=== PATIENT | female | born 1970 | race Caucasian/White ===

== ENCOUNTER 2020-02-03 01:02 | Inpatient (IN) | payer MEDICARE, OTHER ==
[~2020-02-03] VITALS: Ht 157.5 cm; Wt 77.3 kg
[2020-02-03] MEDS ORDERED: CELE10TA PO ×2 (01:42→02:16)
[2020-02-03] MEDS ORDERED: SERO50TA PO (01:42)
[2020-02-03] MEDS ORDERED: SERO200T PO (01:42)
[2020-02-03] MEDS ORDERED: PROTPAK PO (01:42)
[2020-02-03] MEDS ORDERED: PANT40TA3 PO (02:18)
[2020-02-03] MEDS ORDERED: DILA2TAB6 PO (02:18)
[2020-02-03] MEDS ORDERED: QUET200T2 PO (02:18)
[2020-02-03] MEDS ORDERED: QUET5TAB PO (02:18)
[2020-02-03] MEDS ORDERED: MOM 30ML SUSPENSION UDC PO PRN (04:00)
[2020-02-03] MEDS ORDERED: ACETAMINOPHEN TAB 650MG DOSE (2X325MG) PO PRN (04:00)
[2020-02-03] MEDS ORDERED: MAALOX 30 ML SUSP *UDC PO PRN (04:00)
[2020-02-03] MEDS ORDERED: PANTOPRAZOLE 40MG TAB (PROTONIX) PO SCH (09:00)
[2020-02-03] MEDS: QUEtiapine FUMARATE 50 MG TAB PO SCH (09:35)
--- NOTE | 2020-02-03 09:54 | MHHPEPDOC ---
[facility] History & Physical History and Physical DATE OF ADMISSION: Feb 03, 2020 at 04:04 loida presents today for concerns regarding anxiety and depression. She admits to attempting to slit her wrist yesterday morning. She states that she is depressed about her life and possesses feelings of hopelessness. She reports that she has been battling these feelings of depression for years now. She enjoys having people around her. She reports hearing voices in her head for about a week now, and they tell her to end her life and get it over with. She denies any haunting feelings about losing her legs and avoiding certain things. She admits that life without her legs is difficult because she is unable to do many things like drive. Sherice denies having any thoughts about doing things that she would not otherwise do. She does admit to making herself vomit in the past. MEDICATIONS: She has previously been on Seroquel and Celexa, and reports taking Paxil many years ago which worked for a brief period of time. She denies ever taking Wellbutrin. MEDICAL HISTORY: She has been to a mental health unit twice before, but cannot recall when. They sent her to the [facility] to treat her trauma she had from losing her legs. She attempted suicide in 2014. She reports having phantom limb pain in her legs, and has been treated with Hydromorphone. She has arthritis on her lower back and left side. FAMILY HISTORY: She denies any family history of depression or mental health problems. SOCHX: on disability, few supports Objective Appearance: Well nourished. Well groomed. Behavior: Cooperative with good eye contact. Pleasant. Engaged. Affect: Full range. Appropriate to context. Mood: Dysthumic, crying, tearful. Generally good. Appropriately reactive. Speech: Normal volume. Normal rate. Insight: good insight into symptoms and treatment options. 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 Start Wellbutrin ER 150 mg daily. The risks, benefits as well as common side effects as well as alternative jonah tments (including non-treatment) were discussed with the patient both in general and for their particular case. The patient selected this option out of a range. Patients treatment priorities are 1. Risk for suicide and 2. Depression. Her estimated length of stay is anywhere between 3-5 days. Vital Signs Vital Signs Date Time Temp Pulse Resp B/P (MAP) Pulse Ox O2 Delivery O2 Flow Rate FiO2 02/03/20 09:37 97.2 76 16 133/84 (100) 98 02/03/20 05:27 Room Air Medications Scheduled Citalopram Hydrobromide (Celexa) 10 Mg Tablet, 10 MG PO QHS, (Reported) Hydromorphone HCl (Dilaudid) 2 Mg Tablet, 2 MG PO QHS, (Reported) Pantoprazole Sodium (Pantoprazole Sodium) 40 Mg Tablet.dr, 40 MG PO BID, (Reported) Quetiapine Fumarate (Quetiapine Fumarate) 50 Mg Tablet, 50 MG PO DAILY, (Reported) Quetiapine Fumarate (Quetiapine Fumarate) 200 Mg Tablet, 200 MG PO QHS, (Reported) Allergies Coded Allergies: Penicillins (Verified Allergy, Severe, 02/03/20) iodine (Verified Allergy, Severe, 02/03/20) SAI GR DO Feb 03, 2020 09:53
[2020-02-03 10:00] VITALS: BP 140/83
[2020-02-03] MEDS ORDERED: buPROPion **XL** TABLET 150MG (WELLBUTRIN XL) PO ONE (11:45)
[2020-02-03] MEDS: NICOTINE 21MG/24HR 1 EA TRANSDERMAL TD SCH (12:16)
[2020-02-03 16:10] VITALS: BP 140/76
--- NOTE | 2020-02-03 16:31 | HPEPDOC ---
General Date of Admission Feb 03, 2020 at 04:04 Date of Service: Feb 03, 2020 Chief Complaint The patient is a 49-year-old female who presented to the hospital with suicidal attempt History of Present Illness Patient is a 49-year-old female with a PMHx GERD, Arthritis, Phantom limb pain who presented to [facility] after she had a suicidal attempt in which she cut her left wrist. Patient was evaluated by emergency room provider at outside ER and then transferred to [facility] for psychiatric services. Patient was admitted to the inpatient mental health unit under the care of psychiatry for suicidal attempt. Currently patient denies any nausea, vomiting, chest pain, shortness breath, palpitations, cough, pain consultation, diarrhea, or urinary discomfort. Patient denies any changes in her weight or appetite. Home Medications Scheduled Citalopram Hydrobromide (Celexa) 10 Mg Tablet, 10 MG PO QHS, (Reported) Hydromorphone HCl (Dilaudid) 2 Mg Tablet, 2 MG PO QHS, (Reported) Pantoprazole Sodium (Pantoprazole Sodium) 40 Mg Tablet.dr, 40 MG PO BID, (Reported) Quetiapine Fumarate (Quetiapine Fumarate) 50 Mg Tablet, 50 MG PO DAILY, (Reported) Quetiapine Fumarate (Quetiapine Fumarate) 200 Mg Tablet, 200 MG PO QHS, (Reported) Allergies Coded Allergies: Penicillins (Verified Allergy, Severe, 02/03/20) iodine (Verified Allergy, Severe, 02/03/20) Past Medical History Medical History GERD, Arthritis, Phantom limb pain Surgical History Hysterectomy with right-sided oophorectomy Cholecystectomy Left-sided oophorectomy Family History - Mother with a history of breast cancer and father with a history of prostate cancer Social History - Denies the use of alcohol or illicit drugs; patient is a smoker of 20 years - Denies recent travel or sick contacts - Lives alone - Occupation; disability Review of Systems Other systems 10 point review of systems complete, all negative otherwise stated in HPI Vital Signs - Vitals: BP 140/76, HR 75, RR 16, Sat 98%RA, Temp 98.5F - General: Sitting up in wheelchair, Speaking in full sentences, AAOx3 - HEENT: NC, AT, PERRLA - CVS: RRR, +S1S2 - Lungs: Fair air entry bilaterally, No appreciable wheezing / rales / rhonchi - Abdomen: Soft, Non-distended, Non-tender - Extremities: L BKA, R AKA - Neuro: No focal motor or sensory deficit - Skin: Left wrist with [address]; appears clean without any drainage / erythema / swelling Plan / VTE VTE Prophylaxis Ordered?: Yes Plan Plan Suicidal attempt - Currently being managed by psychiatry Left wrist laceration - Wound appears clean without any evidence of infection or drainage - Will start bacitracin ointment and continue with daily / BID dressing changes - Will have wound care evaluate Arthritis - c/w Tylenol PRN Phantom limb pain - Patient has been prescribed Dilaudid as an outpatient and has already been discontinued at this time Smoker / Nicotine dependence - c/w Nicotine path GERD - c/w Protonix DVT prophylaxis - Will c/w early mobility Female ux developer was present throughout the duration of this history and physical examination Thank you for this consultation; please reconsult as needed - will sign off FRANCK SHAH MD Feb 03, 2020 16:31
[2020-02-03] MEDS: PANTOPRAZOLE 40MG TAB (PROTONIX) PO SCH (17:44)
[2020-02-03] MEDS: traZODone 50 MG TAB PO PRN (20:28)
[2020-02-03] MEDS: HYDROmorphone 2 MG TAB PO SCH (20:29)
[2020-02-03] MEDS: BACITRACIN OINTMENT 30GM TUBE TOP SCH (20:32)
[2020-02-03] MEDS ORDERED: CitaloPRAM (CeleXA) 10 MG TABLET PO SCH (21:00)
[2020-02-03] MEDS ORDERED: QUEtiapine FUMARATE 200 MG TAB PO SCH (21:00)
[2020-02-04 07:16] VITALS: BP 136/94
[2020-02-04] MEDS: PANTOPRAZOLE 40MG TAB (PROTONIX) PO SCH ×2 (07:28→16:54)
[2020-02-04] MEDS: NICOTINE 21MG/24HR 1 EA TRANSDERMAL TD SCH (08:37)
[2020-02-04] MEDS: buPROPion **XL** TABLET 150MG (WELLBUTRIN XL) PO SCH (08:37)
[2020-02-04] MEDS: QUEtiapine FUMARATE 50 MG TAB PO SCH (08:37)
[2020-02-04] MEDS: BACITRACIN OINTMENT 30GM TUBE TOP SCH ×2 (09:54→21:23)
--- NOTE | 2020-02-04 15:07 | MHIPNPDOC ---
[facility] Progress Note Progress Note DATE OF SERVICE: 02/04/20 HISTORY: She tried to commit suicide, she tried to cut her wrists because she was feeling very depressed. She says she has tried to kill herself before and it hapenned when she was feeling down and depressed. She says she feels that she is feeling better today, she has prosthetic legs, she has a support system and she would like to go home As per pevious records: "Pt was transferred from [facility] due to SI. She was medically cleared at [facility]. Chief Complaint Pt states that she cut her arm with an electric saw as a suicide attempt. The cut required nine stitches. Pt is tearful & states that she does not know whether or not she is still suicidal. Pt denies HI. Pt had a suicide attempt in 2014, at which time she jumped in front of a tractor trailer & lost both of her legs as a result. Pt denies any hx of self-harm. She denies VH, but reports AH that tell her to kill herself. Main triggers are financial px's & the termination of a romantic relationship in November 2019. Pt c/o depressed mood, anxiety, hopelessness & helplessness, poor concentration, decreased energy levels, & poor sleep. Pt has a hx of depression & anxiety with at least two admissions to [facility]. She does not currently have OP tx. Her PCP prescribes Seroquel & Celexa. Pt denies any substance use & her tox screen was negative. VITAL SIGNS: See below. NEW TEST RESULTS: See below CURRENT MEDICATIONS: See below. MENTAL STATUS EXAMINATION: Patient is a 49 year old female, who is alert, cooperative, dressed in hospital clothes, sitting on a wheel chair ( her legs have been amputated). Speech: Is Spontaneous and fluent, normal rate, tone and volume Language skills are good. Thought processes including: linear but not necessarily coherent. Thought content: She says that she would like to be home when I ask her what would she like to do. She says she would like to work with her prosthetics. Abstract reasoning, and computation: Description of associations: . Description of abnormal or psychotic thoughts: She denies AH, denies VH, denies tactile hallucinations. She denies thought insertion, denies paranoid delusions Judgment: Poor Insight: Poor Orientation: x 3 Recent and remote memory: fair Attention span and concentration: go Fund of knowledge: average Mood: Depressed Affect: constricted, sad, anxious. 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 She sys she has never planned it. MANAGEMENT PLAN: She is very impulsive, she will benefit from Depakote to help her with impulse control. TIME SPENT: 20 minutes. Vital Signs Vital Signs Date Time Temp Pulse Resp B/P (MAP) Pulse Ox O2 Delivery O2 Flow Rate FiO2 02/04/20 07:16 97.9 74 18 136/94 (108) 97 Room Air Current Medications Current Medications Medications (Trade) Dose Ordered Sig/Nito Route PRN Reason Start Time Stop Time Status Last Admin Dose Admin Acetaminophen (Tylenol Tab) 650 mg Q6HP PRN PO HEADACHE or DISCOMFORT 02/03/20 04:00 Al Hydrox/Mg Hydrox/Simethicone (Mylanta) 30 ml Q4HP PRN PO HEARTBURN/INDIGESTION 02/03/20 04:00 Bacitracin (Bacitracin Oint) TO: L wrist BID TOP 02/03/20 21:00 02/04/20 09:54 Bupropion HCl (Wellbutrin Xl) 150 mg DAILY PO 02/04/20 09:00 02/04/20 08:37 Citalopram Hydrobromide (CeleXA) 10 mg QHS PO 02/03/20 21:00 02/03/20 11:33 DC Home Med (Med Rec Complete!) ASDIRECTED XX 02/03/20 02:30 02/03/20 02:23 DC Hydromorphone HCl (Dilaudid) 2 mg QHS PO 02/03/20 21:00 02/03/20 20:29 Magnesium Hydroxide (Milk Of Magnesia) 30 ml DAILYPRN PRN PO CONSTIPATION 02/03/20 04:00 Nicotine (Nicoderm Cq 21mg) 1 patch DAILY TD 02/03/20 09:00 02/04/20 08:37 Pantoprazole Sodium (Protonix) 40 mg BID PO 02/03/20 09:00 02/03/20 17:38 DC 02/03/20 09:35 Pantoprazole Sodium (Protonix) 40 mg BID@0800,1700 PO 02/03/20 17:00 02/04/20 07:28 Quetiapine Fumarate (SEROquel) 50 mg DAILY PO 02/03/20 09:00 02/04/20 08:37 Quetiapine Fumarate (SEROquel) 200 mg QHS PO 02/03/20 21:00 02/03/20 11:34 DC Trazodone HCl (Desyrel) 50 mg QHSP PRN PO INSOMNIA 02/03/20 04:00 02/03/20 20:28 Allergies Coded Allergies: Penicillins (Verified Allergy, Severe, 02/03/20) iodine (Verified Allergy, Severe, 02/03/20) MALOU AYALA MD Feb 04, 2020 15:05
[2020-02-04 16:40] VITALS: BP 126/86
[2020-02-04] MEDS: traZODone 50 MG TAB PO PRN (21:21)
[2020-02-04] MEDS: HYDROmorphone 2 MG TAB PO SCH (21:23)
[2020-02-05 06:12] VITALS: BP 142/90
[2020-02-05] MEDS: PANTOPRAZOLE 40MG TAB (PROTONIX) PO SCH ×2 (07:22→17:11)
[2020-02-05] MEDS: buPROPion **XL** TABLET 150MG (WELLBUTRIN XL) PO SCH (08:11)
[2020-02-05] MEDS: QUEtiapine FUMARATE 50 MG TAB PO SCH (08:11)
[2020-02-05] MEDS: NICOTINE 21MG/24HR 1 EA TRANSDERMAL TD SCH (08:11)
[2020-02-05] MEDS: BACITRACIN OINTMENT 30GM TUBE TOP SCH ×2 (09:16→20:34)
--- NOTE | 2020-02-05 11:13 | MHIPNPDOC ---
[facility] Progress Note Progress Note DATE OF SERVICE: 02/05/20 HPI: Sherice presents today for a follow-up visit. She reports she is doing good and her medication is making her feel better. Sherice denies having suicidal thoughts or hallucinations. She also denies having side effects such as stomachaches or vision changes. Objective Appearance: Well nourished. Well groomed. Behavior: Pleasant. Engaged. Cooperative with good eye contact. Affect: Full range. Appropriate to context. Mood: Appropriately reactive. Generally good. Euthymic. Speech: Normal rate. Normal volume. Motor: No gross motor abnormalities. Cognition: Alert, Attentive, and Oriented to person, place, time. Memory: No formal testing. No gross abnormalities of short or warehouse material handler memory noted during interview. Thought Form: Linear and goal directed. Thought Content: No evidence of suicidal ideation. No thoughts of self harm. No evidence of aggressive or homicidal ideation. No evidence of delusions. Perception: No perceptual abnormalities noted. Judgement: intact as evidenced by decision making in the recent past. Insight: good insight into symptoms and treatment options. Assessment F32.5 Major depressive disorder, single episode, in full remission Plan Continue Wellbutrin to allow full effect to help complete her treatment and ensure that she has the lowest risk of recurrence of her depression. Likely discharge on Friday if she remains improved. Vital Signs Vital Signs Date Time Temp Pulse Resp B/P (MAP) Pulse Ox O2 Delivery O2 Flow Rate FiO2 02/05/20 06:12 97.2 64 16 142/90 (107) 02/04/20 07:16 97 Room Air Current Medications Current Medications Medications (Trade) Dose Ordered Sig/Nito Route PRN Reason Start Time Stop Time Status Last Admin Dose Admin Acetaminophen (Tylenol Tab) 650 mg Q6HP PRN PO HEADACHE or DISCOMFORT 02/03/20 04:00 Al Hydrox/Mg Hydrox/Simethicone (Mylanta) 30 ml Q4HP PRN PO HEARTBURN/INDIGESTION 02/03/20 04:00 Bacitracin (Bacitracin Oint) TO: L wrist BID TOP 02/03/20 21:00 02/05/20 09:16 Bupropion HCl (Wellbutrin Xl) 150 mg DAILY PO 02/04/20 09:00 02/05/20 08:11 Citalopram Hydrobromide (CeleXA) 10 mg QHS PO 02/03/20 21:00 02/03/20 11:33 DC Home Med (Med Rec Complete!) ASDIRECTED XX 02/03/20 02:30 02/03/20 02:23 DC Hydromorphone HCl (Dilaudid) 2 mg QHS PO 02/03/20 21:00 02/04/20 21:23 Magnesium Hydroxide (Milk Of Magnesia) 30 ml DAILYPRN PRN PO CONSTIPATION 02/03/20 04:00 Nicotine (Nicoderm Cq 21mg) 1 patch DAILY TD 02/03/20 09:00 02/05/20 08:11 Pantoprazole Sodium (Protonix) 40 mg BID PO 02/03/20 09:00 02/03/20 17:38 DC 02/03/20 09:35 Pantoprazole Sodium (Protonix) 40 mg BID@0800,1700 PO 02/03/20 17:00 02/05/20 07:22 Quetiapine Fumarate (SEROquel) 50 mg DAILY PO 02/03/20 09:00 02/05/20 08:11 Quetiapine Fumarate (SEROquel) 200 mg QHS PO 02/03/20 21:00 02/03/20 11:34 DC Trazodone HCl (Desyrel) 50 mg QHSP PRN PO INSOMNIA 02/03/20 04:00 02/04/20 21:21 Allergies Coded Allergies: Penicillins (Verified Allergy, Severe, 02/03/20) iodine (Verified Allergy, Severe, 02/03/20) SAI GR DO Feb 05, 2020 11:13
[2020-02-05 16:30] VITALS: BP 136/82
[2020-02-05] MEDS: HYDROmorphone 2 MG TAB PO SCH (20:35)
[2020-02-05] MEDS: traZODone 50 MG TAB PO PRN (20:52)
[2020-02-06 06:29] VITALS: BP 144/76
[2020-02-06] MEDS: PANTOPRAZOLE 40MG TAB (PROTONIX) PO SCH ×2 (07:21→16:46)
[2020-02-06] MEDS: QUEtiapine FUMARATE 50 MG TAB PO SCH (08:18)
[2020-02-06] MEDS: buPROPion **XL** TABLET 150MG (WELLBUTRIN XL) PO SCH (08:18)
[2020-02-06] MEDS: NICOTINE 21MG/24HR 1 EA TRANSDERMAL TD SCH (08:18)
[2020-02-06] MEDS: BACITRACIN OINTMENT 30GM TUBE TOP SCH ×2 (08:18→21:59)
--- NOTE | 2020-02-06 12:42 | MHIPNPDOC ---
[facility] Progress Note Progress Note DATE OF SERVICE: 02/06/20 HISTORY: . HPI: Sherice presents today for a follow up and states she is doing well. She denies any suicidal, homicidal thoughts, or auditory hallucinations. Objective Appearance: Well nourished. Well groomed. Behavior: Pleasant. Engaged. Cooperative with good eye contact. Affect: Appropriate to context. Full range. Mood: Euthymic. Generally good. Appropriately reactive. Speech: Normal rate. Normal volume. Motor: No gross motor abnormalities. Cognition: Alert, Attentive, and Oriented to person, place, time. Memory: No formal testing. No gross abnormalities of short or manager long term care memory noted during interview. Thought Form: Linear and goal directed. Thought Content: No evidence of suicidal ideation. No evidence of aggressive or homicidal ideation. No evidence of delusions. No thoughts of self harm. Perception: No perceptual abnormalities noted. Judgement: intact as evidenced by decision making in the recent past. Insight: good insight into symptoms and treatment options. Assessment F33.2 Major depressive disorder, recurrent severe without psychotic features Plan Continue medication as is. Discharged tomorrow. Vital Signs Vital Signs Date Time Temp Pulse Resp B/P (MAP) Pulse Ox O2 Delivery O2 Flow Rate FiO2 02/06/20 06:29 97.1 58 16 144/76 (98) 02/04/20 07:16 97 Room Air Current Medications Current Medications Medications (Trade) Dose Ordered Sig/Nito Route PRN Reason Start Time Stop Time Status Last Admin Dose Admin Acetaminophen (Tylenol Tab) 650 mg Q6HP PRN PO HEADACHE or DISCOMFORT 02/03/20 04:00 Al Hydrox/Mg Hydrox/Simethicone (Mylanta) 30 ml Q4HP PRN PO HEARTBURN/INDIGESTION 02/03/20 04:00 Bacitracin (Bacitracin Oint) TO: L wrist BID TOP 02/03/20 21:00 02/06/20 08:18 Bupropion HCl (Wellbutrin Xl) 150 mg DAILY PO 02/04/20 09:00 02/06/20 08:18 Citalopram Hydrobromide (CeleXA) 10 mg QHS PO 02/03/20 21:00 02/03/20 11:33 DC Home Med (Med Rec Complete!) ASDIRECTED XX 02/03/20 02:30 02/03/20 02:23 DC Hydromorphone HCl (Dilaudid) 2 mg QHS PO 02/03/20 21:00 02/05/20 20:35 Magnesium Hydroxide (Milk Of Magnesia) 30 ml DAILYPRN PRN PO CONSTIPATION 02/03/20 04:00 Nicotine (Nicoderm Cq 21mg) 1 patch DAILY TD 02/03/20 09:00 02/06/20 08:18 Pantoprazole Sodium (Protonix) 40 mg BID PO 02/03/20 09:00 02/03/20 17:38 DC 02/03/20 09:35 Pantoprazole Sodium (Protonix) 40 mg BID@0800,1700 PO 02/03/20 17:00 02/06/20 07:21 Quetiapine Fumarate (SEROquel) 50 mg DAILY PO 02/03/20 09:00 02/06/20 08:18 Quetiapine Fumarate (SEROquel) 200 mg QHS PO 02/03/20 21:00 02/03/20 11:34 DC Trazodone HCl (Desyrel) 50 mg QHSP PRN PO INSOMNIA 02/03/20 04:00 02/05/20 20:52 Allergies Coded Allergies: Penicillins (Verified Allergy, Severe, 02/03/20) iodine (Verified Allergy, Severe, 02/03/20) SAI GR DO Feb 06, 2020 12:42
[2020-02-06 16:33] VITALS: BP 139/83
[2020-02-06] MEDS: HYDROmorphone 2 MG TAB PO SCH (21:59)
[2020-02-07 06:46] VITALS: BP 138/73
--- NOTE | 2020-02-07 09:17 | MHDSPDOC ---
[facility] Discharge Summary Discharge Summary DATE OF ADMISSION: Feb 03, 2020 at 04:04 DATE OF DISCHARGE: Feb 07, 2020 at 14:00 DISCHARGE DIAGNOSES: Major depressive disorder, recurrent, severe with psychotic features REASON FOR ADMISSION: 49-year-old woman severe depression presents with severe depressive symptoms and psychotic features in suicidal thoughts after attempting to cut herself saw CONSULTANTS INVOLVED:[ None (basic hospitalist screening)] TREATMENT AND PROGRESS ON THE UNIT : Medication changes: start on Wellbutrin 150 mg daily with very positive effects patient became euthymic and engaged in her auditory hallucinations resolved well Behavior on unit: friendly and amenable, although on affect at times but nothing consistent Treatment attendance: attended very well Notable issues on presentation: no notable State on discharge: [improved] DISCHARGE ASSESSMENT: The patient a 49 year old woman, with likely severe depression with psychotic features, presented to [facility], where they treated with antidepressants improving her situation well. Legal status considerations: The patient at the time of discharge did not meet criteria for involuntary admission/extension due to having a [normal] mental status exam, [fair] insight into the situation, They are engaged in the discharge process, as well as being friendly and amenable in behavioral control and havent been engaging in any observed concerning behavior or ideation recently. They decline voluntary extension/admission at this time and must be discharged in good johana, as Im unable to make a case for holding the patient against their will. They may have historical risk factors of admissions and other interactions with psychiatry however, those are not modifiable from a clinical perspective. The patient will need to be discharged in good johana. MENTAL STATUS EXAMINATION ON DISCHARGE: [General: Well dressed with good hygiene Speech: Spontaneous and fluid Thought processes: Linear and logical Thought content: Future orientated Abstract reasoning, and computation: Intact Description of associations: Intact Description of abnormal or psychotic thoughts:Denies any suicidal or homicidal ideation. Denies any auditory or visual hallucinations. Does not appear to be re sponding to internal stimuli. Does not appear to be endorsing any bizarre or paranoid ideation. Judgment: fair Insight: fair Orientation: Alert and orientated 3 Recent and remote memory: Intact Attention span and concentration: Intact Fund of knowledge: Adequate Mood: "okay" Affect: Euthymic with a full range] PLAN/FOLLOWUP ARRANGEMENTS: Follow up appointments made (PCP and MH in 5 days of D/C date) and safety plan completed. Safety Planning aspects completed prior to discharge [Medication supplies limited to 7 days with 4 refills to prevent accumulation to OD] [Family contact completed, educated on safe practices, instructed on removal and mitigation of dangerous means] [RN reviewed crisis hotline information and other aspects to empower patient to access care in interim before next appointment.] The amount of time spent in the coordination of care for this patient was approximately 30 minutes. Vital Signs/I&Os Vital Signs Date Time Temp Pulse Resp B/P (MAP) Pulse Ox O2 Delivery O2 Flow Rate FiO2 02/07/20 06:46 98.3 54 14 138/73 (94) Room Air 02/04/20 07:16 97 Medications Scheduled Bupropion Hcl (Bupropion Xl) 150 Mg Tab.er.24h, 150 MG PO DAILY, (Reported) Citalopram Hydrobromide (Celexa) 10 Mg Tablet, 10 MG PO QHS, (Reported) Pantoprazole Sodium (Pantoprazole Sodium) 40 Mg Tablet.dr, 40 MG PO BID, (Reported) Quetiapine Fumarate (Quetiapine Fumarate) 50 Mg Tablet, 50 MG PO QHS, (Reported) TAKES WITH 200MG FOR 250MG TOTAL Quetiapine Fumarate (Quetiapine Fumarate) 200 Mg Tablet, 200 MG PO QHS, (Reported) TAKES WITH 50MG FOR 250MG TOTAL Scheduled PRN Hydromorphone HCl (Dilaudid) 2 Mg Tablet, 2 MG PO QHS PRN for PAIN, (Reported) CAN TAKE UP TO 4MG TOTAL Allergies Coded Allergies: Penicillins (Verified Allergy, Severe, 02/03/20) iodine (Verified Allergy, Severe, 02/03/20) SAI GR DO Feb 07, 2020 09:17
[2020-02-07] MEDS ORDERED: NICO21PAT TD (09:19)
[2020-02-07] MEDS ORDERED: BUPR150T3 PO (09:19)
[2020-02-07] MEDS: buPROPion **XL** TABLET 150MG (WELLBUTRIN XL) PO SCH (09:37)
[2020-02-07] MEDS: PANTOPRAZOLE 40MG TAB (PROTONIX) PO SCH (09:37)
[2020-02-07] MEDS: QUEtiapine FUMARATE 50 MG TAB PO SCH (09:37)
[2020-02-07] MEDS: BACITRACIN OINTMENT 30GM TUBE TOP SCH (09:38)
[2020-02-07] MEDS: NICOTINE 21MG/24HR 1 EA TRANSDERMAL TD SCH (09:38)
[2020-02-08] MEDS ORDERED: BUPR150T3 PO (22:44)
[2020-02-08] MEDS ORDERED: DILA2TAB6 PO (22:44)
[2020-02-08] MEDS ORDERED: QUET200T2 PO (22:44)
[2020-02-08] MEDS ORDERED: CELE10TA PO (22:44)
[2020-02-08] MEDS ORDERED: QUET5TAB PO (22:44)
[2020-02-08] MEDS ORDERED: PANT-23 PO (22:44)
== END 2020-02-07 14:00 | disposition home or self-care (01) | DRG 885 ==
LOC: M ED 01:02 → M ED INP 04:04 → M PSY 09:56
PROVIDERS: ADMIT Psychiatry & Neurology Addiction Medicine; ATTEND Psychiatry & Neurology Addiction Medicine
DX: F33.3 Major depressive disorder, recurrent, severe with psychotic symptoms (principal); F06.32 Mood disorder due to known physiological condition with major depressive-like episode; Z88.0 Allergy status to penicillin; Z88.8 Allergy status to other drugs, medicaments and biological substances; Z79.899 Other long term (current) drug therapy; K21.9 Gastro-esophageal reflux disease without esophagitis; M19.90 Unspecified osteoarthritis, unspecified site; S61.512A Laceration without foreign body of left wrist, initial encounter; X78.8XXA Intentional self-harm by other sharp object, initial encounter; Y92.9 Unspecified place or not applicable; F17.200 Nicotine dependence, unspecified, uncomplicated; Z89.611 Acquired absence of right leg above knee; Z89.512 Acquired absence of left leg below knee

== ENCOUNTER 2020-02-08 18:01 | Inpatient (IN) | payer MEDICARE, MEDICAID ==
[~2020-02-08] VITALS: Ht 157.5 cm; Wt 77.3 kg
[~2020-02-08 18:01] MED LIST: BUPR150T3 PO; CELE10TA PO; DILA2TAB6 PO; NICO21PAT TD; PANT40TA29 PO; PROTPAK PO; QUET200T2 PO; QUET5TAB PO; SERO200T PO; SERO50TA PO
[2020-02-08 19:06] LABS: MEAN CORPUSCULAR HEMOGLOBIN 31.2 pg (27.0-33.0); MEAN CORPUSCULAR HGB CONC 34.1 g/dl (32.0-36.5); MEAN CORPUSCULAR VOLUME 91.5 fl (80.0-96.0); PLATELET COUNT, AUTOMATED 356 10^3/uL (150-450); RED BLOOD COUNT 4.81 10^6/uL (4.00-5.40); WHITE BLOOD COUNT 10.8 10^3/uL (4.0-10.0)
[2020-02-08 19:30] LABS: AMPHETAMINES LEVEL URINE NEGATIVE (NEGATIVE); BARBITURATES URINE NEGATIVE (NEGATIVE); BENZODIAZEPINES URINE NEGATIVE (NEGATIVE); CANNABINOIDS URINE NEGATIVE (NEGATIVE); COCAINE METABOLITE URINE NEGATIVE (NEGATIVE); METHADONE URINE NEGATIVE (NEGATIVE); OPIATES URINE POSITIVE (NEGATIVE); PHENCYCLIDINE URINE NEGATIVE (NEGATIVE)
[2020-02-08 19:34] LABS: HCG, SERUM QUALITATIVE NEGATIVE (NEGATIVE)
[2020-02-08 19:41] LABS: ACETAMINOPHEN LEVEL < 2.0 UG/ML (10.0-30.0); ALBUMIN 3.9 GM/DL (3.2-5.2); ALT/SGPT 35 U/L (12-78); BILIRUBIN,DIRECT < 0.1 MG/DL (0.0-0.2); BILIRUBIN,TOTAL 0.4 MG/DL (0.2-1.0); BLOOD UREA NITROGEN 12 MG/DL (7-18); CALCIUM LEVEL 9.8 MG/DL (8.5-10.1); CARBON DIOXIDE LEVEL 28 MEQ/L (21-32); CHLORIDE LEVEL 105 MEQ/L (98-107); CREATININE FOR GFR 0.73 MG/DL (0.55-1.30); ETHYL ALCOHOL (ETHANOL) 0.004 % (0.000-0.010); GLOMERULAR FILTRATION RATE > 60.0 (>58); GLUCOSE, FASTING 96 MG/DL (70-100); SALICYLATE LEVEL 3.6 MG/DL (5.0-30.0); SODIUM LEVEL 138 MEQ/L (136-145); TOTAL PROTEIN 7.8 GM/DL (6.4-8.2)
[2020-02-08] MEDS ORDERED: BUPR150T3 PO (22:44)
[2020-02-08] MEDS ORDERED: PANT-23 PO (22:44)
[2020-02-08] MEDS ORDERED: CELE10TA PO (22:44)
[2020-02-08] MEDS ORDERED: QUET200T2 PO (22:44)
[2020-02-08] MEDS ORDERED: DILA2TAB6 PO (22:44)
[2020-02-08] MEDS ORDERED: QUET5TAB PO (22:44)
[2020-02-08] MEDS ORDERED: HYDROmorphone 2 MG TAB PO ONE (23:00)
[2020-02-08] MEDS ORDERED: CitaloPRAM (CeleXA) 10 MG TABLET PO ONE (23:00)
[2020-02-08] MEDS ORDERED: QUEtiapine FUMARATE 50 MG TAB PO ONE (23:00)
[2020-02-08] MEDS ORDERED: QUEtiapine FUMARATE 200 MG TAB PO ONE (23:00)
[2020-02-09] MEDS: buPROPion **XL** TABLET 150MG (WELLBUTRIN XL) PO SCH (11:20)
[2020-02-09] MEDS: PANTOPRAZOLE 40MG TAB (PROTONIX) PO SCH ×2 (11:20→22:10)
[2020-02-09] MEDS ORDERED: MAALOX 30 ML SUSP *UDC PO PRN (20:00)
[2020-02-09] MEDS ORDERED: MOM 30ML SUSPENSION UDC PO PRN (20:00)
[2020-02-09] MEDS ORDERED: traZODone 50 MG TAB PO PRN (20:00)
[2020-02-09] MEDS ORDERED: ACETAMINOPHEN TAB 650MG DOSE (2X325MG) PO PRN (20:00)
[2020-02-10 02:23] VITALS: BP 142/93
--- NOTE | 2020-02-10 07:37 | MHHPEPDOC ---
[facility] History & Physical History and Physical DATE OF ADMISSION: Feb 09, 2020 at 19:58 HPI: Sherice presents today for concerns regarding her unspecified psychotic disorder in the ER. She had been brought in after becoming psychotic and confused. She reportedly had attempted to jump out of the car since her last discharge. She generally does not speak, refuses to answer questions. MEDICAL HISTORY: No notable changes to past psychiatric history. FAMILY HISTORY: No notable changes to family history or social history. Objective Speech: Refuses to speak. Insight: Poor insight. Assessment F29 Unspecified psychosis not due to a substance or known physiological condition Plan Observe Sherice without any medications to see if she improves which would indicate potentially a seizure disorder or other medical problem. Noted to have alter thoughts and risk for suicide. Estimated length of stay between 3 and 5 days. Vital Signs Vital Signs Date Time Temp Pulse Resp B/P (MAP) Pulse Ox O2 Delivery O2 Flow Rate FiO2 02/10/20 02:23 98.3 71 16 142/93 (109) 98 Room Air Medications Scheduled Bupropion Hcl (Bupropion Xl) 150 Mg Tab.er.24h, 150 MG PO DAILY, (Reported) Citalopram Hydrobromide (Celexa) 10 Mg Tablet, 10 MG PO QHS, (Reported) Pantoprazole Sodium (Pantoprazole Sodium) 40 Mg Tablet.dr, 40 MG PO BID, (Reported) Quetiapine Fumarate (Quetiapine Fumarate) 50 Mg Tablet, 50 MG PO QHS, (Reported) TAKES WITH 200MG FOR 250MG TOTAL Quetiapine Fumarate (Quetiapine Fumarate) 200 Mg Tablet, 200 MG PO QHS, (Reported) TAKES WITH 50MG FOR 250MG TOTAL Scheduled PRN Hydromorphone HCl (Dilaudid) 2 Mg Tablet, 2 MG PO QHS PRN for PAIN, (Reported) CAN TAKE UP TO 4MG TOTAL Allergies Coded Allergies: Penicillins (Verified Allergy, Severe, 02/03/20) iodine (Verified Allergy, Severe, 02/03/20) SAI GR DO Feb 10, 2020 07:37
[2020-02-10] MEDS: buPROPion **XL** TABLET 150MG (WELLBUTRIN XL) PO SCH (09:34)
[2020-02-10] MEDS: PANTOPRAZOLE 40MG TAB (PROTONIX) PO SCH ×2 (09:34→21:32)
--- NOTE | 2020-02-10 14:58 | HPEPDOC ---
General Date of Admission Feb 09, 2020 at 19:58 Date of Service: Feb 10, 2020 Chief Complaint The patient is a 49-year-old female admitted with a reason for visit of Unspecified Depressive Disorder. History of Present Illness Patient is a 49-year-old female on WC with a PMHx GERD, Arthritis, Phantom limb pain, left BKA and right AKA after a suicide attempt in 2014 [facility] for another suicide attempt with an electric saw was discharged on 02/07/20. The next day the patient was having a "Nervous breakdow n" as per mother. She was confused, crying , could not focus or concentrate could not remember conversations so was being brought back to the ED by mother when she tried to jump out of the car. She was [facility] for depression with Suicidal ideas. I am seeing the patient for medical history and physical. She does complain of aching pain in both her amputated legs about a bout 3/10 in intensity with no radiation. Home Medications Scheduled Bupropion Hcl (Bupropion Xl) 150 Mg Tab.er.24h, 150 MG PO DAILY, (Reported) Citalopram Hydrobromide (Celexa) 10 Mg Tablet, 10 MG PO QHS, (Reported) Pantoprazole Sodium (Pantoprazole Sodium) 40 Mg Tablet.dr, 40 MG PO BID, (Reported) Quetiapine Fumarate (Quetiapine Fumarate) 50 Mg Tablet, 50 MG PO QHS, (Reported) TAKES WITH 200MG FOR 250MG TOTAL Quetiapine Fumarate (Quetiapine Fumarate) 200 Mg Tablet, 200 MG PO QHS, (Reported) TAKES WITH 50MG FOR 250MG TOTAL Scheduled PRN Hydromorphone HCl (Dilaudid) 2 Mg Tablet, 2 MG PO QHS PRN for PAIN, (Reported) CAN TAKE UP TO 4MG TOTAL Allergies Coded Allergies: Penicillins (Verified Allergy, Severe, 02/03/20) iodine (Verified Allergy, Severe, 02/03/20) Past Medical History Medical History GERD, Arthritis, Phantom limb pain, Major depressive disorder with psychotic features with suicidal attempt last week by cutting her arm with electric saw. L BKA, R AKA after suicidal attempt in 2014 from jumping in front of tractor and trailer Chronic opiate use. Surgical History Hysterectomy with right-sided oophorectomy Cholecystectomy Left-sided oophorectomy Left BKA, Right AKA Family History Mother with a history of breast cancer and father with a history of prostate cancer Social History * Smoker: current smoker Alcohol: Denies Drugs: denies A-FIB/CHADSVASC A-FIB History Current/History of A-Fib/PAF?: No Review of Systems Constitutional: Denies: Chills, Fever, Night Sweats ENT: Denies: Head Aches, Ear Pain, Dysphagia Skin: Denies: Rash, Lesions, Breakdown Pulmonary: Denies: Dyspnea, Cough Cardiovascular: Denies: Chest Pain, Palpitations, Orthopnea, Paroxysmal Noc. Dyspnea, Lt Headedness Gastrointestinal: Denies: Nausea, Vomiting, Abdominal Pain, Diarrhea Genitourinary: Denies: Dysuria, Frequency, Incontinence, Retention Hematologic: Denies: Bruising, Bleeding Excessively Musculoskeletal: Reports: Leg Pain Neurological: Denies: Weakness, Numbness, Change in speech, Confusion Psych: Reports: Anxiety, Depression, Thoughts of Self Harm Vital Signs Vital Signs Date Time Temp Pulse Resp B/P (MAP) Pulse Ox O2 Delivery O2 Flow Rate FiO2 02/10/20 02:23 98.3 71 16 142/93 (109) 98 Room Air Assessment/Plan Patient is a 49-year-old female on WC with a PMHx GERD, Arthritis, Phantom limb pain, left BKA and right AKA after a suicide attempt in 2014 [facility] for another suicide attempt with an electric saw was discharged on 02/07/20. The next day the patient was having a "Nervous breakdown" as per mother. She was confused, crying , could not focus or concentrate could not remember conversations so was being brought back to the ED by mother when she tried to jump out of the car. She was [facility] for depression with Suicidal ideas. Depression with Suicidal attempt as per psychiatry Phantom pain in both her amputated legs continue tylenol. At home she is also on narcotics prn. I will leave the use of narcotics to the discretion of the psychiatrists At present her pain seems to be controlled. Will Sign off if any medical issues please reconsult. Plan / VTE VTE Prophylaxis Ordered?: No ASHLEY BARKER MD Feb 10, 2020 12:36
[2020-02-10 18:28] VITALS: BP 144/80
[2020-02-11 06:22] VITALS: BP 132/79
--- NOTE | 2020-02-11 07:32 | MHIPNPDOC ---
[facility] Progress Note Progress Note DATE OF SERVICE: 02/11/20 HPI: Sherice presents today for a follow up. She was initially hospitalized due to a suicide attempt and after being discharged, she was readmitted after her mother felt she was not better. She attempted to jump out of the car while her mom was driving her back so the rescue squad came to take her to the hospital. She denies current suicidal thoughts. MEDICATIONS: Currently taking Wellbutrin. Objective Behavior: mildly psychotic. Affect: concrete, flat affect. Thought Form: nonlinear thought process. Insight: poor insight. Assessment F29 Unspecified psychosis not due to a substance or known physiological condition Plan Continue to observe patient. She is fairly unusual and is likely in a psychotic episode. Unclear if schizophrenia or psychosis. Start patient on Abilify 5 mg nightly. Vital Signs Vital Signs Date Time Temp Pulse Resp B/P (MAP) Pulse Ox O2 Delivery O2 Flow Rate FiO2 02/11/20 06:22 97.0 75 16 132/79 (96) Room Air 02/10/20 02:23 98 Current Medications Current Medications Medications (Trade) Dose Ordered Sig/Nito Route PRN Reason Start Time Stop Time Status Last Admin Dose Admin Acetaminophen (Tylenol Tab) 650 mg Q6HP PRN PO HEADACHE or DISCOMFORT 02/09/20 20:00 Al Hydrox/Mg Hydrox/Simethicone (Mylanta) 30 ml Q4HP PRN PO HEARTBURN/INDIGESTION 02/09/20 20:00 Bupropion HCl (Wellbutrin Xl) 150 mg DAILY PO 02/09/20 09:00 02/10/20 09:34 Home Med (Med Rec Complete!) ASDIRECTED XX 02/08/20 22:45 02/08/20 22:45 DC Magnesium Hydroxide (Milk Of Magnesia) 30 ml DAILYPRN PRN PO CONSTIPATION 02/09/20 20:00 Olanzapine (ZyPREXA) 5 mg Q4HP PRN PO AGITATION 02/09/20 20:00 Pantoprazole Sodium (Protonix) 40 mg BID PO 02/09/20 09:00 02/10/20 21:32 Trazodone HCl (Desyrel) 50 mg QHSP PRN PO INSOMNIA 02/09/20 20:00 Allergies Coded Allergies: Penicillins (Verified Allergy, Severe, 02/03/20) iodine (Verified Allergy, Severe, 02/03/20) SAI GR DO Feb 11, 2020 07:32
[2020-02-11] MEDS: PANTOPRAZOLE 40MG TAB (PROTONIX) PO SCH ×2 (09:34→22:07)
[2020-02-11] MEDS: buPROPion **XL** TABLET 150MG (WELLBUTRIN XL) PO SCH (09:34)
[2020-02-11] MEDS: OLANZapine 5 MG TAB PO PRN (09:34)
[2020-02-11 18:07] VITALS: BP 134/76
[2020-02-12 06:32] VITALS: BP 131/84
[2020-02-12] MEDS: buPROPion **XL** TABLET 150MG (WELLBUTRIN XL) PO SCH (08:49)
[2020-02-12] MEDS: PANTOPRAZOLE 40MG TAB (PROTONIX) PO SCH ×2 (08:49→20:55)
--- NOTE | 2020-02-12 12:18 | MHIPNPDOC ---
[facility] Progress Note Progress Note DATE OF SERVICE: 02/12/20 HISTORY: According to ED report: "Pt states that she was DC from [facility] on 02/07/20. Her mother picked her up & took her home, but then this morning her mother thought she needed to come back to the hospital so she was driving pt here when pt attempted to jump out of the car. Pt states that she tried to jump out of the car because she did not want to come back to the hospital. Pt initially denied SI, but then later stated "maybe" when asked again about SI. Pt was tearful throughout the conversation & stated that she needs help because "there is something wrong in my head." Pt is unable to verbalize what she means by this. She at one point stated "I'm psychotic." When asked what she meant by that, she stated "Why else would I have tried to jump out of the car?" Pt denies HI. She denies both AH & VH. She is slow to respond to questions & may be internally preoccupied. Pt states that she did not feel any better when she was DC from [facility]. She was unable to answer further questions. Pt attempted suicide in 2014, at which time she jumped in front of a tractor trailer & both of her legs were amputated. She also attempted suicide last week by cutting her arm with an electric saw. Pt has a hx of depression & anxiety with at least two admissions to [facility]. Pt was DC on Celexa, Seroquel, Trazodone, & Wellbutrin from [facility]. Pt's tox screen was positive for opiates but she is prescribed Dilauded. TW spoke to pt's mother, Gertrudis ([phone]). She states that pt was DC from [facility] too soon. When she picked pt up on 02/07/20 she showed no emotion, would go for a long period of time without talking, & would stare off with no response to questions. Later that night pt went out to eat with her son's girlfriend & she called her mother when she returned home. Per Gertrudis, pt sounded more like herself. However, she called pt around 1000 on 02/08/20 & pt stated to her that she was a mess & felt like she was having a nervous breakdown, so Gertrudis went to her house. At that point, pt was distraught & seemed confused, so she convinced pt to come back to the ED. She apologized to her mother for saying hurtful things to her, but per Gertrudis, pt had not said anything hurtful & pt could not remember the conversation that happened earlier in the day. Gertrudis feels that pt would benefit from another admission." VITAL SIGNS: See below. NEW TEST RESULTS: See below CURRENT MEDICATIONS: See below. MENTAL STATUS EXAMINATION: Patient is a 49-year old female, who is alert, sitting on a chair, with her wheel chair in front of her. Speech: Low volume, slow, monotone, not spontaneous. Thought processes including: disorganized, at times she mumbles to herself and at times she seems to be internally preoccupied, she exhibits thought locking at times Thought content: she is focused on being discharged, she feels she is condemned to live at [facility] forever, she reports feeling trapped in her mind. She denies SI/HI, denies thought delusions but she is guarded and seems to be responding to internal stimuli Abstract reasoning, and computation: Impaired at this time, she is psychotic Description of associations: mildly loose Description of abnormal or psychotic thoughts: she denies thought delusions and denies TAV hallucinations but she is seen talking to herself, mumbling and ocassionally reacting in a very different way that minutes before, mildly agitated.. Judgment: poor Insight: poor. Orientation: to place and person only. Partially oriented to date and time only Recent and remote memory: Recent memory is not good, she doesn't remember that we talked about her using Depakote on February 03 Attention span and concentration: Easily distracted Language: poverty of language. Fund of knowledge: not able to assess at this time. She is easily distracted, internally preoccupied. Mood: depressed. sad. irritable. Affect: congruent with mood, irritable, sad DIAGNOSES: 1. Unspecified psychotic disorder 2. R/O major Depressive disorder with psychosis. 3. R/O PTSD ASSESSMENT: the patient is internally preoccupied, she talks to herself and at times she reacts with anger to a question when a couple of minutes earlier she was calm and cooperative. Even when she denies TAV hallucinations or thought delusions she seems to be psychotic. She is definitely depressed. MANAGEMENT PLAN: will increase Abilify by 2 mgs so she will be taking 2 mgs in the morning and 5 mgs at bedtime TIME SPENT: 15 minutes. Vital Signs Vital Signs Date Time Temp Pulse Resp B/P (MAP) Pulse Ox O2 Delivery O2 Flow Rate FiO2 02/12/20 06:32 97.9 74 16 131/84 (100) 97 Room Air Current Medications Current Medications Medications (Trade) Dose Ordered Sig/Nito Route PRN Reason Start Time Stop Time Status Last Admin Dose Admin Acetaminophen (Tylenol Tab) 650 mg Q6HP PRN PO HEADACHE or DISCOMFORT 02/09/20 20:00 Al Hydrox/Mg Hydrox/Simethicone (Mylanta) 30 ml Q4HP PRN PO HEARTBURN/INDIGESTION 02/09/20 20:00 Aripiprazole (AbiLIFY) 5 mg QHS PO 02/11/20 21:00 02/11/20 22:07 Bupropion HCl (Wellbutrin Xl) 150 mg DAILY PO 02/09/20 09:00 02/12/20 08:49 Home Med (Med Rec Complete!) ASDIRECTED XX 02/08/20 22:45 02/08/20 22:45 DC Magnesium Hydroxide (Milk Of Magnesia) 30 ml DAILYPRN PRN PO CONSTIPATION 02/09/20 20:00 Olanzapine (ZyPREXA) 5 mg Q4HP PRN PO AGITATION 02/09/20 20:00 02/11/20 09:34 Pantoprazole Sodium (Protonix) 40 mg BID PO 02/09/20 09:00 02/12/20 08:49 Trazodone HCl (Desyrel) 50 mg QHSP PRN PO INSOMNIA 02/09/20 20:00 Allergies Coded Allergies: Penicillins (Verified Allergy, Severe, 02/03/20) iodine (Verified Allergy, Severe, 02/03/20) MALOU AYALA MD Feb 12, 2020 12:13
[2020-02-12] MEDS: ARIPiprazole 2 MG TAB PO SCH (12:51)
[2020-02-12 15:41] VITALS: BP 137/80
[2020-02-12] MEDS ORDERED: HYDROmorphone 2 MG TAB PO PRN (21:15)
[2020-02-13 06:30] VITALS: BP 130/83
[2020-02-13] MEDS: ARIPiprazole 2 MG TAB PO SCH (08:50)
[2020-02-13] MEDS: buPROPion **XL** TABLET 150MG (WELLBUTRIN XL) PO SCH (08:50)
[2020-02-13] MEDS: PANTOPRAZOLE 40MG TAB (PROTONIX) PO SCH ×2 (08:50→21:00)
[2020-02-13 09:59] LABS: BASO # 0.1 10^3/uL (0.0-0.2); BASO % 0.8 % (0.0-1.0); EOS # 0.2 10^3/uL (0.0-0.5); EOS % 2.4 % (0.0-3.0); HEMATOCRIT 42.5 % (36.0-47.0); HEMOGLOBIN 14.2 g/dl (12.0-15.5); LYMPH # 1.7 10^3/uL (1.5-5.0); LYMPH % 28.1 % (24.0-44.0); MEAN CORPUSCULAR HEMOGLOBIN 30.5 pg (27.0-33.0); MEAN CORPUSCULAR HGB CONC 33.4 g/dl (32.0-36.5); MEAN CORPUSCULAR VOLUME 91.2 fl (80.0-96.0); MONO # 0.3 10^3/uL (0.0-0.8); MONO % 5.2 % (0.0-5.0); NEUTROPHILS # 3.9 10^3/uL (1.5-8.5); NEUTROPHILS % 63.3 % (36.0-66.0); PLATELET COUNT, AUTOMATED 307 10^3/uL (150-450); RED BLOOD COUNT 4.66 10^6/uL (4.00-5.40); WHITE BLOOD COUNT 6.2 10^3/uL (4.0-10.0)
[2020-02-13 10:22] LABS: ALBUMIN 3.6 GM/DL (3.2-5.2); ALT/SGPT 27 U/L (12-78); BILIRUBIN,TOTAL 0.5 MG/DL (0.2-1.0); BLOOD UREA NITROGEN 17 MG/DL (7-18); CALCIUM LEVEL 9.1 MG/DL (8.5-10.1); CARBON DIOXIDE LEVEL 31 MEQ/L (21-32); CHLORIDE LEVEL 101 MEQ/L (98-107); GLOMERULAR FILTRATION RATE > 60.0 (>58); GLUCOSE, FASTING 170 MG/DL (70-100); POTASSIUM SERUM 3.3 MEQ/L (3.5-5.1); SODIUM LEVEL 139 MEQ/L (136-145); TOTAL PROTEIN 7.1 GM/DL (6.4-8.2)
[2020-02-13] MEDS ORDERED: POTASSIUM CHLORIDE 10 MEQ SR TABLET PO ONE (12:00)
--- NOTE | 2020-02-13 16:19 | MHIPNPDOC ---
[facility] Progress Note Progress Note DATE OF SERVICE: 02/13/20 HISTORY: According to ED report: "Pt states that she was DC from [facility] on 02/07/20. Her mother picked her up & took her home, but then this morning her mother thought she needed to come back to the hospital so she was driving pt here when pt attempted to jump out of the car. Pt states that she tried to jump out of the car because she did not want to come back to the hospital. Pt initially denied SI, but then later stated "maybe" when asked again about SI. Pt was tearful throughout the conversation & stated that she needs help because "there is something wrong in my head." Pt is unable to verbalize what she means by this. She at one point stated "I'm psychotic." When asked what she meant by that, she stated "Why else would I have tried to jump out of the car?" Pt denies HI. She denies both AH & VH. She is slow to respond to questions & may be internally preoccupied. Pt states that she did not feel any better when she was [facility]. She was unable to answer further questions. Pt attempted suicide in 2014, at which time she jumped in front of a tractor trailer & both of her legs were amputated. She also attempted suicide last week by cutting her arm with an electric saw. Pt has a hx of depression & anxiety with at least two admissions to [facility]. Pt was DC on Celexa, Seroquel, Trazodone, & Wellbutrin [facility]. Pt's tox screen was positive for opiates but she is prescribed Dilauded. TW spoke to pt's mother, Gertrudis ([phone]). She states that pt was DC [facility]. When she picked pt up on 02/07/20 she showed no emotion, would go for a long period of time without talking, & would stare off with no response to questions. Later that night pt went out to eat with her son's girlfriend & she called her mother when she returned home. Per Gertrudis, pt sounded more like herself. However, she called pt around 1000 on 02/08/20 & pt stated to her that she was a mess & felt like she was having a nervous breakdown, so Gertrudis went to her house. At that point, pt was distraught & seemed confused, so she convinced pt to come back to the ED. She apologized to her mother for saying hurtful things to her, but per Gertrudis, pt had not said anything hurtful & pt could not remember the conversation that happened earlier in the day. Gertrudis feels that pt would benefit from another admission." VITAL SIGNS: See below. NEW TEST RESULTS: See below CURRENT MEDICATIONS: See below. MENTAL STATUS EXAMINATION: Patient is a 49-year old female, who is alert, sitting on a chair, with her wheel chair in front of her. Speech: Normal volume, tone and rate. More spontaneous, doesn't need as much prompting as yesterday Thought processes including: more organized, less tangential Thought content: Still positive for depressive thoughts but not anxious thoughts. She denies SI/HI today, denies thought delusions Description of associations: improving Description of abnormal or psychotic thoughts: Denies TAv hallucinations, denies thought delusions. She didn't seem to be responding to internal stimuli today. Judgment: poor Insight: poor. Orientation: to place and person only. Partially oriented to date and time. Recent and remote memory: Slowly improving, she is recovering some of her memories Attention span and concentration: more focused Language: poverty of language. Mood: sad,depressed. Affect: congruent with mood, but it is more reactive today. DIAGNOSES: 1. Unspecified psychotic disorder 2. R/O major Depressive disorder with psychosis. 3. R/O PTSD ASSESSMENT: Patient is sitting at the patient's lounge as she did yesterday. her mood and affect are flat and she seems to be responding to internal stimuli. she told the Nursing Staff that she hasn't eaten in 3 days, so, a CMP and a CBC with differential were ordered. The blood was drawn after breakfast and her blood glucose was 170. Her albumin/globulin ration is 1 (low) but her hemoglobin and hematocrit are within the normal range. Monocytes are 5.2 ( very mild elevation- not significant) and her potassium is 3.3 (mildly low). will encourage eating, will offer orang juice or bananas to increase her mildly low potassium. MANAGEMENT PLAN: Continue with current medications TIME SPENT: 15 minutes. Vital Signs Vital Signs Date Time Temp Pulse Resp B/P (MAP) Pulse Ox O2 Delivery O2 Flow Rate FiO2 02/13/20 06:30 97.8 85 14 130/83 (99) 98 Room Air Laboratory Data 24H Labs Laboratory Tests 2 02/13/20 09:16: Immature Granulocyte % (Auto) 0.2, Neutrophils (%) (Auto) 63.3, Lymphocytes (%) (Auto) 28.1, Monocytes (%) (Auto) 5.2H, Eosinophils (%) (Auto) 2.4, Basophils (%) (Auto) 0.8, Neutrophils # (Auto) 3.9, Lymphocytes # (Auto) 1.7, Monocytes # (Auto) 0.3, Eosinophils # (Auto) 0.2, Basophils # (Auto) 0.1, Nucleated Red Blood Cells % (auto) 0.0, Anion Gap 7L, Glomerular Filtration Rate > 60.0, Calcium Level 9.1, Total Bilirubin 0.5, Aspartate Amino Transf (AST/SGOT) 11, Alanine Aminotransferase (ALT/SGPT) 27, Alkaline Phosphatase 90, Total Protein 7.1, Albumin 3.6, Albumin/Globulin Ratio 1.0L CBC/BMP Laboratory Tests 02/13/20 09:16 Current Medications Current Medications Medications (Trade) Dose Ordered Sig/Nito Route PRN Reason Start Time Stop Time Status Last Admin Dose Admin Acetaminophen (Tylenol Tab) 650 mg Q6HP PRN PO HEADACHE or DISCOMFORT 02/09/20 20:00 02/12/20 20:55 Al Hydrox/Mg Hydrox/Simethicone (Mylanta) 30 ml Q4HP PRN PO HEARTBURN/INDIGESTION 02/09/20 20:00 Aripiprazole (AbiLIFY) 2 mg QAM PO 02/12/20 09:00 02/13/20 08:50 Aripiprazole (AbiLIFY) 5 mg QHS PO 02/11/20 21:00 02/12/20 20:55 Bupropion HCl (Wellbutrin Xl) 150 mg DAILY PO 02/09/20 09:00 02/13/20 08:50 Home Med (Med Rec Complete!) ASDIRECTED XX 02/08/20 22:45 02/08/20 22:45 DC Hydromorphone HCl (Dilaudid) 2 mg QHS PRN PO PAIN 02/12/20 21:15 02/12/20 21:49 Magnesium Hydroxide (Milk Of Magnesia) 30 ml DAILYPRN PRN PO CONSTIPATION 02/09/20 20:00 Olanzapine (ZyPREXA) 5 mg Q4HP PRN PO AGITATION 02/09/20 20:00 02/11/20 09:34 Pantoprazole Sodium (Protonix) 40 mg BID PO 02/09/20 09:00 02/13/20 08:50 Trazodone HCl (Desyrel) 50 mg QHSP PRN PO INSOMNIA 02/09/20 20:00 Cancel Allergies Coded Allergies: Penicillins (Verified Allergy, Severe, 02/03/20) iodine (Verified Allergy, Severe, 02/03/20) MALOU AYALA MD Feb 13, 2020 12:24
[2020-02-13 16:22] VITALS: BP 144/89
[2020-02-14 06:27] VITALS: BP 129/65
--- NOTE | 2020-02-14 07:52 | MHIPNPDOC ---
[facility] Progress Note Progress Note DATE OF SERVICE: 02/14/20 HPI: Sherice presents today for depression symptoms. She has not been eating much and reports eating toast for breakfast and something for dinner. Additionally, her blood sugar levels are low. She reports that she still feels certain symptoms of depression like loss of interest. Sherice denies suicidal suicidal thoughts. MEDICATIONS: Sherice notes that Abilify has been helping for symptoms of depression. MEDICAL HISTORY: She reports visiting Dr. Foley over the weekend. Objective Cognition: More reasonale and linear. Still presents as fairly flat with little reactivity. Thought Form: [place] in thinking. Appears to have less zeal for eating. Assessment F33.9 Major depressive disorder, recurrent, unspecified Plan Unclear if she would qualify for catatonia, and will hold off on trial for Ativan. Continue Buproprion and increase Abilify to 5 mg, twice a day as she is making some progress. 3. . ASSESSMENT: MANAGEMENT PLAN: . TIME SPENT: minutes. Vital Signs Vital Signs Date Time Temp Pulse Resp B/P (MAP) Pulse Ox O2 Delivery O2 Flow Rate FiO2 02/14/20 06:27 98.9 64 18 129/65 (86) 96 Room Air Laboratory Data 24H Labs Laboratory Tests 2 02/13/20 09:16: Immature Granulocyte % (Auto) 0.2, Neutrophils (%) (Auto) 63.3, Lymphocytes (%) (Auto) 28.1, Monocytes (%) (Auto) 5.2H, Eosinophils (%) (Auto) 2.4, Basophils (%) (Auto) 0.8, Neutrophils # (Auto) 3.9, Lymphocytes # (Auto) 1.7, Monocytes # (Auto) 0.3, Eosinophils # (Auto) 0.2, Basophils # (Auto) 0.1, Nucleated Red Blood Cells % (auto) 0.0, Anion Gap 7L, Glomerular Filtration Rate > 60.0, Calcium Level 9.1, Total Bilirubin 0.5, Aspartate Amino Transf (AST/SGOT) 11, Alanine Aminotransferase (ALT/SGPT) 27, Alkaline Phosphatase 90, Total Protein 7.1, Albumin 3.6, Albumin/Globulin Ratio 1.0L CBC/BMP Laboratory Tests 02/13/20 09:16 Current Medications Current Medications Medications (Trade) Dose Ordered Sig/Nito Route PRN Reason Start Time Stop Time Status Last Admin Dose Admin Acetaminophen (Tylenol Tab) 650 mg Q6HP PRN PO HEADACHE or DISCOMFORT 02/09/20 20:00 02/12/20 20:55 Al Hydrox/Mg Hydrox/Simethicone (Mylanta) 30 ml Q4HP PRN PO HEARTBURN/INDIGESTION 02/09/20 20:00 Aripiprazole (AbiLIFY) 2 mg QAM PO 02/12/20 09:00 02/13/20 08:50 Aripiprazole (AbiLIFY) 5 mg QHS PO 02/11/20 21:00 02/13/20 21:01 Bupropion HCl (Wellbutrin Xl) 150 mg DAILY PO 02/09/20 09:00 02/13/20 08:50 Home Med (Med Rec Complete!) ASDIRECTED XX 02/08/20 22:45 02/08/20 22:45 DC Hydromorphone HCl (Dilaudid) 2 mg QHS PRN PO PAIN 02/12/20 21:15 02/12/20 21:49 Magnesium Hydroxide (Milk Of Magnesia) 30 ml DAILYPRN PRN PO CONSTIPATION 02/09/20 20:00 Olanzapine (ZyPREXA) 5 mg Q4HP PRN PO AGITATION 02/09/20 20:00 02/11/20 09:34 Pantoprazole Sodium (Protonix) 40 mg BID PO 02/09/20 09:00 02/13/20 21:00 Trazodone HCl (Desyrel) 50 mg QHSP PRN PO INSOMNIA 02/09/20 20:00 Cancel Allergies Coded Allergies: Penicillins (Verified Allergy, Severe, 02/03/20) iodine (Verified Allergy, Severe, 02/03/20) SAI GR DO Feb 14, 2020 07:52
[2020-02-14] MEDS: buPROPion **XL** TABLET 150MG (WELLBUTRIN XL) PO SCH (09:22)
[2020-02-14] MEDS: PANTOPRAZOLE 40MG TAB (PROTONIX) PO SCH ×2 (09:22→20:23)
[2020-02-14] MEDS: ARIPiprazole 2 MG TAB PO SCH (09:22)
[2020-02-14 16:10] VITALS: BP 129/79
[2020-02-15 06:29] VITALS: BP 129/59
--- NOTE | 2020-02-15 07:53 | MHIPNPDOC ---
[facility] Progress Note Progress Note DATE OF SERVICE: 02/15/20 HPI: hSerice presents today for concerns regarding her depression. She notes that she is just dealing with depression and is looking forward to more things. Patient was guarded during the interview and denied any suicidal thoughts. Patient denied hearing any voices or shakiness. MEDICATIONS: She is currently taking Abilify 5 mg, twice a day. Objective Appearance: Well nourished. Well groomed. Appears to be stated age. Mood: Appropriately reactive. Dysthymic. Generally good. Thought Form: Linear and goal directed. Thought Content: No thoughts of self harm. No evidence of delusions. No evidence of aggressive or homicidal ideation. No evidence of suicidal ideation. Judgement: Intact as evidenced by decision making in the recent past. Insight: false. Good insight into symptoms and treatment options. Assessment F29 Unspecified psychosis not due to a substance or known physiological condition Plan Patient is expected to continue her medication and continue to monitor as she improves. She possibly requires a long-term treatment due to risk of suicide. She has to continue taking Abilify 5 mg. Vital Signs Vital Signs Date Time Temp Pulse Resp B/P (MAP) Pulse Ox O2 Delivery O2 Flow Rate FiO2 02/15/20 06:29 98.4 61 12 129/59 (82) Room Air 02/14/20 06:27 96 Current Medications Current Medications Medications (Trade) Dose Ordered Sig/Nito Route PRN Reason Start Time Stop Time Status Last Admin Dose Admin Acetaminophen (Tylenol Tab) 650 mg Q6HP PRN PO HEADACHE or DISCOMFORT 02/09/20 20:00 02/12/20 20:55 Al Hydrox/Mg Hydrox/Simethicone (Mylanta) 30 ml Q4HP PRN PO HEARTBURN/INDIGESTION 02/09/20 20:00 Aripiprazole (AbiLIFY) 2 mg QAM PO 02/12/20 09:00 02/14/20 10:04 DC 02/14/20 09:22 Aripiprazole (AbiLIFY) 5 mg BID PO 02/14/20 21:00 02/14/20 20:23 Aripiprazole (AbiLIFY) 5 mg QAM PO 02/15/20 09:00 Cancel Aripiprazole (AbiLIFY) 5 mg QHS PO 02/11/20 21:00 02/14/20 11:10 DC 02/13/20 21:01 Bupropion HCl (Wellbutrin Xl) 150 mg DAILY PO 02/09/20 09:00 02/14/20 09:22 Home Med (Med Rec Complete!) ASDIRECTED XX 02/08/20 22:45 02/08/20 22:45 DC Hydromorphone HCl (Dilaudid) 2 mg QHS PRN PO PAIN 02/12/20 21:15 02/12/20 21:49 Magnesium Hydroxide (Milk Of Magnesia) 30 ml DAILYPRN PRN PO CONSTIPATION 02/09/20 20:00 Olanzapine (ZyPREXA) 5 mg Q4HP PRN PO AGITATION 02/09/20 20:00 02/11/20 09:34 Pantoprazole Sodium (Protonix) 40 mg BID PO 02/09/20 09:00 02/14/20 20:23 Trazodone HCl (Desyrel) 50 mg QHSP PRN PO INSOMNIA 02/09/20 20:00 Cancel Allergies Coded Allergies: Penicillins (Verified Allergy, Severe, 02/03/20) iodine (Verified Allergy, Severe, 02/03/20) SAI GR DO Feb 15, 2020 07:53
[2020-02-15] MEDS: PANTOPRAZOLE 40MG TAB (PROTONIX) PO SCH ×2 (08:23→21:08)
[2020-02-15] MEDS: buPROPion **XL** TABLET 150MG (WELLBUTRIN XL) PO SCH (08:23)
[2020-02-15] MEDS ORDERED: ARIPiprazole 2 MG TAB PO SCH (09:00)
[2020-02-15 16:11] VITALS: BP 137/80
[2020-02-16 06:26] VITALS: BP 129/87
[2020-02-16] MEDS: buPROPion **XL** TABLET 150MG (WELLBUTRIN XL) PO SCH (08:30)
[2020-02-16] MEDS: PANTOPRAZOLE 40MG TAB (PROTONIX) PO SCH ×2 (08:30→21:20)
--- NOTE | 2020-02-16 09:12 | MHIPNPDOC ---
[facility] Progress Note Progress Note DATE OF SERVICE: 02/16/20 HPI: Sherice presents today for a medication follow up. Yesterday, she went a group. She has no suicidal thoughts. She says she is ready to go home, and her mom would be able to come in to see if she has returned to how she was before. She has no thoughts, shakes or tremors, or hallucinations. She says she remembers what happens when she was brought in, but does not remember when she got home. She was very confused then. MEDICATIONS: She says the medication is doing okay, it helps her with anxiety and depression, and her mood is doing better. Objective Behavior: Cooperative with good eye contact. Guarded. Not engaged much but reports symptoms consisten with depresssion at times. Pleasant. Affect: Appropriate to context. Full range. Flat. Thought Content: No evidence of delusions. No evidence of aggressive or homicidal ideation. No evidence of suicidal ideation. No thoughts of self harm. Judgement: Poor. Insight: Poor. Assessment F32.89 Other specified depressive episodes F41.9 Anxiety disorder, unspecified Plan Continue medications at current 5 mg BID of Abilify, with potential increase. Reportedly, she has been yelling at her mother, which is highly typical for this behavior. Her guardedness makes me cautious about changing course on her current discharge, as she appears that she might be potentially attempting to avoid mentioning symptoms in an attempt to be released early. Vital Signs Vital Signs Date Time Temp Pulse Resp B/P (MAP) Pulse Ox O2 Delivery O2 Flow Rate FiO2 02/16/20 06:26 97.7 73 12 129/87 (101) Room Air 02/14/20 06:27 96 Current Medications Current Medications Medications (Trade) Dose Ordered Sig/Nito Route PRN Reason Start Time Stop Time Status Last Admin Dose Admin Acetaminophen (Tylenol Tab) 650 mg Q6HP PRN PO HEADACHE or DISCOMFORT 02/09/20 20:00 02/12/20 20:55 Al Hydrox/Mg Hydrox/Simethicone (Mylanta) 30 ml Q4HP PRN PO HEARTBURN/INDIGESTION 02/09/20 20:00 Aripiprazole (AbiLIFY) 2 mg QAM PO 02/12/20 09:00 02/14/20 10:04 DC 7/20/20 09:22 Aripiprazole (AbiLIFY) 5 mg BID PO 02/14/20 21:00 02/16/20 08:30 Aripiprazole (AbiLIFY) 5 mg QAM PO 02/15/20 09:00 Cancel Aripiprazole (AbiLIFY) 5 mg QHS PO 02/11/20 21:00 02/14/20 11:10 DC 02/13/20 21:01 Bupropion HCl (Wellbutrin Xl) 150 mg DAILY PO 02/09/20 09:00 02/16/20 08:30 Home Med (Med Rec Complete!) ASDIRECTED XX 02/08/20 22:45 02/08/20 22:45 DC Hydromorphone HCl (Dilaudid) 2 mg QHS PRN PO PAIN 02/12/20 21:15 02/12/20 21:49 Magnesium Hydroxide (Milk Of Magnesia) 30 ml DAILYPRN PRN PO CONSTIPATION 02/09/20 20:00 Olanzapine (ZyPREXA) 5 mg Q4HP PRN PO AGITATION 02/09/20 20:00 02/11/20 09:34 Pantoprazole Sodium (Protonix) 40 mg BID PO 02/09/20 09:00 02/16/20 08:30 Trazodone HCl (Desyrel) 50 mg QHSP PRN PO INSOMNIA 02/09/20 20:00 Cancel Allergies Coded Allergies: Penicillins (Verified Allergy, Severe, 02/03/20) iodine (Verified Allergy, Severe, 02/03/20) SAI GR DO Feb 16, 2020 09:12
[2020-02-16 16:07] VITALS: BP 127/71
[2020-02-16] MEDS: OLANZapine 5 MG TAB PO PRN (21:20)
[2020-02-17 06:35] VITALS: BP 150/86
--- NOTE | 2020-02-17 07:59 | MHIPNPDOC ---
[facility] Progress Note Progress Note DATE OF SERVICE: 02/17/20 HPI: Sherice presents today for a check-in. She states that her depression is about the same, and her depression level is about a 4. Objective Appearance: Well nourished. Well groomed. Appears to be stated age. Behavior: Cooperative with good eye contact. Pleasant. Engaged. Affect: Full range. Appropriate to context. Mood: Generally good. Euthymic. Appropriately reactive. Speech: Spontaneous and Fluid. Normal volume. Normal rate. Motor: No gross motor abnormalities. Cognition: Alert, Attentive, and Oriented to person, place, time. Thought Content: No evidence of suicidal ideation. No thoughts of self harm. No evidence of aggressive or homicidal ideation. No evidence of delusions. Perception: No perceptual abnormalities noted. Assessment F33.9 Major depressive disorder, recurrent, unspecified Plan Continue with Abilify and Wellbutrin. Patient will be discharged tomorrow and appears patient has made some progress regarding collateral information. Vital Signs Vital Signs Date Time Temp Pulse Resp B/P (MAP) Pulse Ox O2 Delivery O2 Flow Rate FiO2 02/17/20 06:35 97.2 58 16 150/86 (107) 02/16/20 06:26 Room Air 02/14/20 06:27 96 Current Medications Current Medications Medications (Trade) Dose Ordered Sig/Nito Route PRN Reason Start Time Stop Time Status Last Admin Dose Admin Acetaminophen (Tylenol Tab) 650 mg Q6HP PRN PO HEADACHE or DISCOMFORT 02/09/20 20:00 02/12/20 20:55 Al Hydrox/Mg Hydrox/Simethicone (Mylanta) 30 ml Q4HP PRN PO HEARTBURN/INDIGESTION 02/09/20 20:00 Aripiprazole (AbiLIFY) 2 mg QAM PO 02/12/20 09:00 02/14/20 10:04 DC 02/14/20 09:22 Aripiprazole (AbiLIFY) 5 mg BID PO 02/14/20 21:00 02/16/20 21:21 Aripiprazole (AbiLIFY) 5 mg QAM PO 02/15/20 09:00 Cancel Aripiprazole (AbiLIFY) 5 mg QHS PO 02/11/20 21:00 02/14/20 11:10 DC 02/13/20 21:01 Bupropion HCl (Wellbutrin Xl) 150 mg DAILY PO 02/09/20 09:00 02/16/20 08:30 Home Med (Med Rec Complete!) ASDIRECTED XX 02/08/20 22:45 02/08/20 22:45 DC Hydromorphone HCl (Dilaudid) 2 mg QHS PRN PO PAIN 02/12/20 21:15 02/12/20 21:49 Magnesium Hydroxide (Milk Of Magnesia) 30 ml DAILYPRN PRN PO CONSTIPATION 02/09/20 20:00 Olanzapine (ZyPREXA) 5 mg Q4HP PRN PO AGITATION 02/09/20 20:00 02/16/20 21:20 Pantoprazole Sodium (Protonix) 40 mg BID PO 02/09/20 09:00 02/16/20 21:20 Trazodone HCl (Desyrel) 50 mg QHSP PRN PO INSOMNIA 02/09/20 20:00 Cancel Allergies Coded Allergies: Penicillins (Verified Allergy, Severe, 02/03/20) iodine (Verified Allergy, Severe, 02/03/20) SAI GR DO Feb 17, 2020 07:59
[2020-02-17] MEDS: PANTOPRAZOLE 40MG TAB (PROTONIX) PO SCH (09:52)
[2020-02-17] MEDS: buPROPion **XL** TABLET 150MG (WELLBUTRIN XL) PO SCH (09:52)
--- NOTE | 2020-05-30 11:10 | MHDSPDOC ---
[facility] Discharge Summary Discharge Summary DATE OF ADMISSION: Feb 09, 2020 at 19:58 DATE OF DISCHARGE: Feb 18, 2020 at 11:33 DISCHARGE DIAGNOSES: Unspecified psychotic disorder Unspecified depressive disorder CONSULTANTS INVOLVED:[ None (basic hospitalist screening)] REASON FOR ADMISSION & TREATMENT AND PROGRESS ON THE UNIT : Patient was admitted to the inpatient mental health unit shortly after being discharged with some bizarre, psychotic-like behavior that had been problematic. She was readmitted where she was notably psychotic and tangential, concrete. She was treated first with Buproprion and started with Abilify, titrate up to 5 mg twice a day with positive effect. She improved well going to groups, becoming more social and denying suicidal or homicidal ideationShe made strong progress and no longer met involuntary criteria, then was discharged. She tolerated the medication well, however due to insurance reasons, a 10 mg had to be sent as this was covered under a plan. DISCHARGE ASSESSMENT:[improved] Legal status considerations: The patient at the time of discharge did not meet criteria for involuntary admission/extension due to having a [normal] mental status exam, [fair] insight into the situation, They are engaged in the discharge process, as well as being friendly and amenable in behavioral control and havent been engaging in any observed concerning behavior or ideation recently. They decline voluntary extension/admission at this time and must be discharged in good johana, as Im unable to make a case for holding the patient against their will. They may have historical risk factors of admissions and other interactions with psychiatry however, those are not modifiable from a clinical perspective. The patient will need to be discharged in good johana. MENTAL STATUS EXAMINATION ON DISCHARGE: [General: Well dressed with good hygiene Speech: Spontaneous and fluid Thought processes: Linear and logical Thought content: Future orientated Abstract reasoning, and computation: Intact Description of associations: Intact Description of abnormal or psychotic thoughts:Denies any suicidal or homicidal ideation. Denies any auditory or visual hallucinations. Does not appear to be responding to internal stimuli. Does not appear to be endorsing any bizarre or paranoid ideation. Judgment: fair Insight: fair Orientation: Alert and orientated 3 Recent and remote memory: Intact Attention span and concentration: Intact Fund of knowledge: Adequate Mood: "okay" Affect: Euthymic with a full range] PLAN/FOLLOWUP ARRANGEMENTS: Follow up appointments made (PCP and MH in 5 days of D/C date) and safety plan completed. Safety Planning aspects completed prior to discharge [Medication supplies limited to 7 days with 4 refills to prevent accumulation to OD] [Family contact completed, educated on safe practices, instructed on removal and mitigation of dangerous means] [RN reviewed crisis hotline information and other aspects to empower patient to access care in interim before next appointment.] The amount of time spent in the coordination of care for this patient was approximately 30 minutes. Medications Scheduled Bupropion Hcl (Bupropion Xl) 150 Mg Tab.er.24h, 150 MG PO DAILY, (Reported) Citalopram Hydrobromide (Celexa) 10 Mg Tablet, 10 MG PO QHS, (Reported) Pantoprazole Sodium (Pantoprazole Sodium) 40 Mg Tablet.dr, 40 MG PO BID, (Reported) Quetiapine Fumarate (Quetiapine Fumarate) 50 Mg Tablet, 50 MG PO QHS, (Reported) TAKES WITH 200MG FOR 250MG TOTAL Quetiapine Fumarate (Quetiapine Fumarate) 200 Mg Tablet, 200 MG PO QHS, (Reported) TAKES WITH 50MG FOR 250MG TOTAL Scheduled PRN Hydromorphone HCl (Dilaudid) 2 Mg Tablet, 2 MG PO QHS PRN for PAIN, (Reported) CAN TAKE UP TO 4MG TOTAL Allergies Coded Allergies: Penicillins (Verified Allergy, Severe, 02/03/20) iodine (Verified Allergy, Severe, 02/03/20) SAI GR DO May 30, 2020 11:10
== END 2020-02-18 11:33 | disposition home or self-care (01) | DRG 885 ==
LOC: M ED 18:01 → M ED INP 02-09 19:58 → M PSY 02-10 01:51
PROVIDERS: ADMIT Psychiatry & Neurology Addiction Medicine; ATTEND Psychiatry & Neurology Addiction Medicine
DX: F32.89 Other specified depressive episodes (principal); R45.851 Suicidal ideations; F41.9 Anxiety disorder, unspecified; Z88.0 Allergy status to penicillin; Z88.8 Allergy status to other drugs, medicaments and biological substances; K21.9 Gastro-esophageal reflux disease without esophagitis; M19.90 Unspecified osteoarthritis, unspecified site; G54.6 Phantom limb syndrome with pain; Z89.611 Acquired absence of right leg above knee; Z89.512 Acquired absence of left leg below knee; F11.90 Opioid use, unspecified, uncomplicated; Z79.899 Other long term (current) drug therapy